=== PATIENT | male | born 1970 | race Caucasian/White ===

== ENCOUNTER 2018-02-03 11:26 | Observation (INO) | payer SELFPAY ==
[2018-02-03 15:06] LABS: #Basophils 0.1 thou/uL (0.0-0.2); #Eosinphils 0.2 thou/uL (0.0-0.7); #Lymphocytes 2.8 thou/uL (1.20-3.40); #Monocytes 0.7 thou/uL (0.11-0.59); #Neutrophils 5.2 thou/uL (1.40-6.50); %Basophils 0.9 % (0.0-1.0); %Eosinophils 1.9 % (0.0-10.0); %Lymphocytes 31.5 % (21.0-51.0); %Monocytes 7.4 % (0.0-10.0); %Neutrophils 58.3 % (42.0-75.0); Hemoglobin 14.5 g/dL (14.0-18.0); Mean Corpuscular HGB CONC 33.9 g/dL (32.0-36.0); Mean Corpuscular Hemoglobin 31.9 pg (27.0-31.0); Mean Platelet Volume 7.9 fL (7.4-10.4); Platelet Count 254 thou/uL (130-400); Red Blood Cell (RBC) Count 4.55 mill/uL (4.70-6.10); White Blood Cell (WBC) Count 8.9 thou/uL (4.8-10.8)
[2018-02-03 15:28] LABS: ALT (SGPT) 20 U/L (8-55); AST (SGOT) 16 U/L (5-34); Albumin 3.9 g/dL (3.5-5.0); Alkaline Phosphatase 80 U/L (40-150); Anion Gap 12 mmol/L (10-20); BUN (Urea Nitrogen) 11 mg/dL (8.9-20.6); Bilirubin, Total 0.6 mg/dL (0.2-1.2); Calc. Creatinine Clearance 0 mL/min (70-130); Calcium 9.4 mg/dL (7.8-10.44); Carbon Dioxide 23 mmol/L (22-29); Chloride 105 mmol/L (98-107); Estimated GFR-MDRD Greater than 90; Globulin 2.8 g/dL (2.4-3.5); Glucose 98 mg/dL (70-105); Protein, Total 6.7 g/dL (6.0-8.3); Sodium 136 mmol/L (136-145)
[2018-02-03 17:27] LABS: Troponin I Less than 0.010 ng/mL (< 0.028)
[2018-02-03] MEDS ORDERED: cloNIDine 0.1 MG TAB PO PRN (17:35)
[2018-02-03] MEDS ORDERED: Acetaminophen 325 MG TAB PO PRN (17:35)
[2018-02-03] MEDS ORDERED: HYDROcodone/Acetaminophen 5/325 mg Tablet PO PRN (17:35)
[2018-02-03] MEDS ORDERED: Ondansetron PF 4 MG/2 ML Vial IVP PRN (17:35)
[2018-02-03] MEDS ORDERED: Ondansetron ODT 4 MG TAB PO PRN (17:35)
[2018-02-03] MEDS ORDERED: hydrALAZINE 20 MG/ML VIAL SLOW IVP PRN (17:35)
[2018-02-03] MEDS ORDERED: NIFEdipine XL 30 MG TAB PO PRN (17:35)
[2018-02-03] MEDS ORDERED: Senokot S 8.6-50 MG TAB PO PRN (17:35)
[2018-02-03] MEDS ORDERED: Calcium Carbonate 500 MG ChewTAB PO PRN ×2 (17:35→17:42)
[2018-02-03] MEDS ORDERED: Nitroglycerin 0.4 MG TAB (25 Tab Bottle) PO PRN (17:37)
--- NOTE | 2018-02-03 18:21 | HP ---
PRIMARY CARE PHYSICIAN: None. CHIEF COMPLAINT: Chest discomfort. HISTORY OF PRESENT ILLNESS: The patient is a 47-year-old white male with tobacco dependence, hypertension, and strong family history of heart disease, presented to the emergency room with chest discomfort. The chest discomfort started around 7:15 a.m. today while he was resting in bed. It was substernal, radiating to his left shoulder. It was dull, pressure-like without any aggravating or relieving factor. The pain remained constant for an hour or so after which it slowed down. He continues to have some chest discomfort. He denies any nausea, vomiting, diaphoresis, syncope, or palpitations. He had a stress test more than five years ago. He quit smoking 1-1/2 months ago after smoking for 30 years. He denies recent immobilization travel, fever, chills, or cough. In the emergency room at [place], his initial vital signs showed temperature 98.4, respirations 24, pulse of 91, blood pressure of 179/108. His EKG showed sinus rhythm with nonspecific ST-T wave changes. He received morphine, aspirin, and nitroglycerin patch in the emergency room. His pain somewhat improved with nitroglycerin. PAST MEDICAL HISTORY: 1. Hypertension. 2. Former smoker. 3. Strong family history of heart disease. 4. GERD. PAST SURGICAL HISTORY: Reviewed with the patient and none. ALLERGIES: NO KNOWN DRUG ALLERGIES. CURRENT HOME MEDICATION: Reviewed with the patient and none. SOCIAL HISTORY: The patient drinks mostly over the weekend. He is a former smoker as discussed above. FAMILY HISTORY: Positive for strong history of heart disease. REVIEW OF SYSTEMS: All other review of systems was reviewed and was found negative. He does complain of headache that started 2 hours ago. No photophobia, phonophobia reported. PHYSICAL EXAMINATION: VITAL SIGNS: As discussed above. GENERAL: A 47-year-old male, in no significant distress. Continues to have mild chest discomfort. HEENT: Head atraumatic, normocephalic. Sclerae anicteric. Moist mucous membranes. No oral lesion. NECK: Supple. No JVD appreciated. No carotid bruit. LUNGS: Clear to auscultation bilaterally. No wheezing, rales, or rhonchi. HEART: S1 and S2 present. Regular rate and rhythm. There was some tenderness over the anterior chest wall. However, the pain was not reproducible. There were no heaves or pulsation. ABDOMEN: Soft, nontender. Bowel sounds present. EXTREMITIES: No edema or calf tenderness. NEUROLOGIC: Grossly nonfocal. Moves all 4 extremities. PSYCHIATRIC: Alert, awake, and oriented x3. SKIN: Warm and dry. LYMPH NODES: No palpable lymph nodes in the neck. PERIPHERAL VASCULAR: Radial pulses palpable bilaterally. MUSCULOSKELETAL: No joint swelling or tenderness. LABORATORY FINDINGS: CBC showed WBC 10 with hemoglobin 15.9, hematocrit 44.6, platelet 263. Chemistry showed sodium 138, potassium 3.9, chloride 105, bicarb 24, BUN 12, creatinine 0.81, glucose of 109. LFTs in normal range. Troponin negative. BNP 30. EKG by my review showed sinus rhythm. Chest x-ray by my review was negative for infiltrate. IMPRESSION: 1. Chest discomfort in a 47-year-old male with untreated hypertension, 30 pack-year smoking history, and strong family history of heart disease. His symptoms are suspicious for cardiac etiology. His HEART score was 4. We will continue aspirin and add low-dose statin. We will check fasting lipid profile in a.m. The patient quit smoking 1-1/2 months ago. We will risk stratify with a stress test in a.m. if all three sets of troponins are negative. 2. Hypertension, untreated. We will start him on low-dose RUBEN inhibitor and titrate accordingly. 3. Family history of heart disease. 4. Former smoker. 5. Chronic alcohol use especially over the weekends. 6. Gastroesophageal reflux disease. PLAN: Plan of care was discussed with the patient in detail. He stated understanding. Job ID: [id number]
[2018-02-03 18:34] VITALS: BMI 31.0
[2018-02-03] MEDS ORDERED: Amlodipine 5 MG TAB PO SCH (19:00)
[2018-02-03] MEDS ORDERED: Cyclobenzaprine 10 MG TAB PO SCH (19:00)
[2018-02-03] MEDS: Famotidine 20 MG TAB PO SCH (19:49)
[2018-02-03] MEDS: Lisinopril 5 MG TAB PO SCH (19:49)
[2018-02-03 22:35] LABS: Troponin I Less than 0.010 ng/mL (< 0.028)
--- NOTE | 2018-02-04 00:12 | PRG ---
DATE OF SERVICE: 02/03/2018 SUBJECTIVE: The patient denies any chest discomfort at this time. No nausea, vomiting, diaphoresis, palpitations, or syncope reported. Symptomatically, he feels better. OBJECTIVE: VITAL SIGNS: Temperature 98.7, pulse rate 71, respirations 20, blood pressure of 141/87, and O2 saturation 94% on room air. Current medications were reviewed. The patient is currently on aspirin. DICTATION ENDS HERE Job ID: [id number]
[2018-02-04] MEDS ORDERED: Amlodipine 5 MG TAB PO SCH (09:00)
[2018-02-04] MEDS ORDERED: Aspirin 325 MG TAB PO SCH (09:00)
[2018-02-04] MEDS: Lisinopril 5 MG TAB PO SCH (09:31)
[2018-02-04] MEDS: Famotidine 20 MG TAB PO SCH (09:31)
[2018-02-04 16:20] VITALS: BP 146/72; TEMP 98.4
--- NOTE | 2018-02-04 17:24 | NM ---
CARDIAC SPECT: 02/04/18 HISTORY: 47-year-old male with chest pain, hypertension, smoker. TECHNIQUE: A myocardial perfusion scan was performed using the single isotope one day protocol with technetium 9 9m Sestamibi. 10 millicuries was injected intravenously for the rest exam followed by 28 millicuries for the stress study. Exercise stress was monitored and interpreted by Dr. Gregg Acosta. FINDINGS: Homogeneous tracer distribution is seen in the myocardial segments on stress and rest images without fixed or reversible defects. GATED SPECT LVEF: 47%. WALL MOTION EXAM: No significant wall motion abnormalities are seen. IMPRESSION: No evidence of reversible ischemia. POS: MECCA
--- NOTE | 2018-02-05 03:29 | DIS ---
DATE OF ADMISSION: 02/03/2018 DATE OF DISCHARGE: 02/04/2018 PRIMARY CARE PHYSICIAN: None. CONSULTANTS: None. PROCEDURES: The patient had a nuclear stress test, which showed a LVEF of 47%. Impression: No evidence of reversible ischemia. Negative stress test. REVIEW OF SYSTEMS: The patient was examined on the morning of discharge. The patient denies any current chest pain, palpitations, shortness of breath, headache, fever, chills, abdominal pain, nausea, vomiting, or diarrhea. All other systems reviewed and are negative unless mentioned in the hospital course. PHYSICAL EXAMINATION: VITAL SIGNS: Temperature 98.1, pulse is 63, respiratory rate is 12, pulse ox is 93% on room air, blood pressure 143/93. CONSTITUTIONAL: The patient is in no distress. He is alert and oriented to person, place, and time. HEAD: Atraumatic, normocephalic. EYES: Pupils are equally round and reactive to light. Extraocular muscles are intact. ENT: Mouth exam is normal. Mucous membranes are moist. NECK: Normal range of motion. Trachea is midline. No JVD is noted. RESPIRATORY/CHEST: No respiratory distress. Breath sounds are clear. No wheezing. No rales. CARDIOVASCULAR: Normal heart sounds, S1, S2. ABDOMEN: Nontender on palpation. Bowel sounds are heard. BACK: Normal inspection. No tenderness. EXTREMITIES: Upper extremities; normal inspection. Motor strength is normal. Sensation is intact. Radial pulses are equal bilaterally. Lower extremities; inspection normal. Motor strength is normal. Pedal pulses are normal bilaterally. NEURO: The patient is oriented to person, place, and time. Speech is normal. SKIN; warm and dry. Normal in color. HOSPITAL COURSE: Mr. Sheridan is a very pleasant 47-year-old male who was admitted through [place] [facility] to [facility] for evaluation of chest pain. The patient reports that he had left-sided chest pain radiating to his left shoulder. The patient was given aspirin in the [place] [facility] and transferred for admission for chest pain rule out. EKG in [place] showed a sinus rhythm and nonspecific ST-T wave changes. He received morphine and nitroglycerin patch and pain improved somewhat. PAST MEDICAL HISTORY: Includes hypertension. SOCIAL HISTORY: He is a former smoker. FAMILY HISTORY: Strong family history of heart disease and GERD. The patient had 3 troponins, which were all undetectable. Lab was unremarkable. The patient's vital signs remained stable. He was started on some hypertensive medications. Stress test was negative. The patient will be discharged home to follow up with primary care. Instructed to obtain a blood pressure cuff to take his blood pressure several times a day, write it down, and take that with him to his primary care doc. Primary care physician should also repeat a BMP. ALLERGIES: NONE. DISCHARGE MEDICATIONS: The patient will be started on: 1. Norvasc 2.5 mg p.o. daily. 2. Aspirin 325 mg p.o. daily. 3. Zestril 5 mg p.o. b.i.d. DISCHARGE DIAGNOSES: 1. Chest pain, atypical. 2. Hypertension. 3. Former smoker. DISCHARGE CONDITION: Stable. DISPOSITION: The patient will be discharged home. REFERRALS: The patient should establish primary care and should follow up for his blood pressure within 1 week. Job ID: [id number]
--- NOTE | 2018-02-05 12:25 | STRESS ---
Acquisition Time: 2018-02-04 12:23:47 Total Exercise Time: 00:07:08 Test Indications: CHEST PAIN Medications: Protocol: KAITLIN Max HR: 148 BPM 86% of Pred: 172 BPM Max BP: 190/092 mmHG Max Work Load: 10.1 METS RESTING ECG: NORMAL SINUS RHYTHM AT 64 BPM SYMPTOMS: DYSPNEA ON EXERTION; MILD CHEST PAIN NORMAL BP RESPONSE ECTOPY: NONE ECG STRESS: NO SIGNIFICANT CHANGES INTERPRETATION:AWAIT NUCLEAR IMAGES FOR DEFINITIVE DIAGNOSIS COMMENTS: EXERCISED 7 MINUTES; PEAK HEART RATE = 146 BPM Confirmed by ADDI JONES ([id number]), newspaper editor OUL MARR ([id number]) on 02/05/2018 12:25:15 PM Referred By: MD Zachery GHOSH Confirmed By:ADDI JONES
== END 2018-02-04 18:11 | disposition home or self-care (01) ==
LOC: ERS 11:26 → EDBD 11:26 → 2SW 15:52
PROVIDERS: ADMIT Internal Medicine; ATTEND Internal Medicine
DX: R07.89 Other chest pain (principal); I10 Essential (primary) hypertension; K21.9 Gastro-esophageal reflux disease without esophagitis; Z87.891 Personal history of nicotine dependence; Z79.82 Long term (current) use of aspirin; Z79.899 Other long term (current) drug therapy
CPT/HCPCS: 36415; 36416; 78452; 80053; 84484; 85025; 93017; 94760; 99285; A9500; G0378